=== PATIENT | female | born 1980 | race African-American/Black ===

== ENCOUNTER 2025-07-16 14:24 | Emergency (ER) | payer OTHER ==
[2025-07-16] MEDS ORDERED: levETIRAcetam 500 MG (5 mL) VIAL ONE (14:29)
[2025-07-16 14:40] LABS: #Basophils 0.04 10x3/uL (0.0-0.2); #Eosinophils 0.65 10x3/uL (0.0-0.7); #Monocytes 0.41 10x3/uL (0.11-0.59); #Neutrophils 2.67 10x3/uL (1.40-6.50); %Basophils 0.7 % (0.0-1.0); %Eosinophils 10.9 % (0.0-10.0); %Lymphocytes 36.6 % (21.0-51.0); %Monocytes 6.9 % (0.0-10.0); %Neutrophils 44.7 % (42.0-75.0); Hematocrit 33.3 % (36.0-47.0); Hemoglobin 10.7 g/dL (12.0-16.0); Mean Corpuscular Hemoglobin 27.1 pg (27.0-31.0); Mean Corpuscular Volume 84.3 fL (78.0-98.0); Platelet Count 290 10x3/uL (130-400); Red Blood Cell (RBC) Count 3.95 mill/uL (4.20-5.40); White Blood Cell (WBC) Count 5.96 10x3/uL (4.8-10.8)
[2025-07-16 14:49] LABS: BHCG - Serum Negative (NEGATIVE); Pregs Control Background? CLEAR/WHITE (CLR/WHITE); Pregs Control Bar Appear? YES (CONTROL BAR)
[2025-07-16 14:57] LABS: ALT (SGPT) 17 U/L (Less than 34); AST (SGOT) 22 U/L (11-34); Albumin 4.0 g/dL (3.1-4.5); Alkaline Phosphatase 52 U/L (40-110); Anion Gap 12 mmol/L (10-20); BUN (Urea Nitrogen) 11 mg/dL (7.0-18.7); Bilirubin, Total 0.2 mg/dL (0.3-1.2); Calc. Creatinine Clearance 0 mL/min (70-130); Calcium 8.6 mg/dL (7.8-10.44); Carbon Dioxide 26 mmol/L (22-29); Chloride 109 mmol/L (98-107); Globulin 2.5 g/dL (2.4-3.5); Glucose 89 mg/dL (70-105); Potassium 3.1 mmol/L (3.5-5.1); Sodium 144 mmol/L (136-145)
[2025-07-16] MEDS ORDERED: Acetaminophen 500 MG TAB ONE (17:11)
== END 2025-07-16 17:17 | disposition home or self-care (01) ==
LOC: ERS 14:24
DX: R56.9 Unspecified convulsions (principal)
CPT/HCPCS: 36416; 70450; 72125; 80053; 83605; 84146; 84703; 85025; 93005; 94760; 95813; 96365; J1953